=== PATIENT | female | born 1995 | race Caucasian/White ===

== ENCOUNTER 2018-07-17 10:48 | Day surgery (SDC) | payer OTHER ==
[~2018-07-17 10:48] MED LIST: NACL 0.9% 1000 ML 1,000 ML IV SCH
[2018-07-17] MEDS ORDERED: WATER FOR IRRIG STERILE IR ONE (12:02)
--- NOTE | 2018-07-17 12:17 | Anesthesia Day of Surgery ---
Anesthesia Day of Surgery - Day of Surgery Patient Examined: Yes Patient H&P Reviewed: Yes Patient is NPO: Yes Beta Blockers: No
--- NOTE | 2018-07-17 12:18 | Anesthesia Consultation ---
Anesthesia Consult and Med Hx - Airway Anesthetic Teeth Evaluation: Good ROM Head & Neck: Adequate Mental/Hyoid Distance: Adequate Mallampati Class: Class III Intubation Access Assessment: Good - Pulmonary Exam CTA: Yes - Cardiac Exam Cardiac Exam: No Murmur - Pre-Operative Health Status ASA Pre-Surgery Classification: ASA2 Proposed Anesthetic Plan: MAC - Pulmonary Hx Asthma: No COPD: No Hx Pneumonia: No - Cardiovascular System Hx Hypertension: No - Central Nervous System Hx Seizures: No Hx Psychiatric Problems: No - Endocrine Hx Renal Disease: No Hx End Stage Renal Disease: No Hx Hypothyroidism: No Hx Hyperthyroidism: No - Hematic Hx Anemia: No Hx Sickle Cell Disease: No - Other Systems Hx Alcohol Use: No Hx Obesity: Yes
[2018-07-17] MEDS ORDERED: DIPRIVAN 10 MG/ML IV ONE (12:45)
[2018-07-17] MEDS ORDERED: VERSED ONE (12:45)
--- NOTE | 2018-07-17 13:06 | Procedure Note ---
Date of procedure: 07/17/18 Pre-op diagnosis: Epigastric and Right Upper Quadrant Pain Post-op diagnosis: other (No Peptic Ulcer Disease noted/ Mild Distal Esophagitis/Gastritis and Portal Gastropathy/Duodenitis and R/O Celiac Diasease) Procedure: EGD with Biopsy Anesthesia: [facility] [place] Surgeon: PANCHITO FONTANEZ Estimated blood loss: minimal Pathology: list Specimen disposition: to lab Condition: stable Disposition: same day (Treat with PPI. Check LFT and PT/INR. Avoid aspirin and NSAID for 5 days and follow up in 1 to 2 weeks ([phone]).)
--- NOTE | 2018-07-17 13:10 | History and Physical Report ---
HISTORY OF PRESENT ILLNESS: This is a 22-year-old slightly obese female who has been having epigastric and right upper quadrant pain and is to be evaluated for an EGD to make sure there is not any significant upper GI pathology accounting for her upper abdominal discomfort. She had an ultrasound done, which showed presence of incidental gallstones and may require a HIDA scan to be done if the EGD is unremarkable. ALLERGIES: No known allergies. SOCIAL HISTORY: Denies history of smoking or alcohol use. No cardiac issues. No flu shots. FAMILY HISTORY: She does have a family history of diabetes. She does not have any diabetes and is not on any medication. PHYSICAL EXAMINATION: VITAL SIGNS: She is afebrile. Blood pressure 131/83, pulse 82, height is 5 feet, weight is 142 pounds. HEENT: Shows no JVD. LUNGS: Clear to auscultation. CARDIOVASCULAR: Normal. ABDOMEN: Soft with some epigastric and right upper quadrant pain. EXTREMITIES: No pedal edema. NEUROLOGIC: The patient is otherwise alert and oriented. IMPRESSION: Epigastric and right upper quadrant pain, peptic ulcer disease, incidental gallstones, obesity. PLAN: To do an EGD at [facility] on 07/17/2018. Possible HIDA scan to be done as an outpatient if the EGD is unremarkable. JOB# [id number] JOBY/MARIBEL
--- NOTE | 2018-07-17 13:20 | Operative Report ---
PROCEDURE: Esophagogastroduodenoscopy with biopsy. INDICATIONS: A 22-year-old female, who has been having epigastric and right upper quadrant pain. She had an ultrasound done, which showed presence of incidental gallstones. EGD was done to make sure there was not any significant upper GI pathology present. DESCRIPTION OF PROCEDURE: Procedure was done after getting informed consent with MAC anesthesia. Instrument was passed through the hypopharynx into the esophagus, which showed mild distal esophagitis. Stomach showed presence of portal gastropathy. The patient may have underlying MILLAN nonalcoholic steatohepatitis and some antral gastritis. Pylorus is patent. Duodenum showed presence of duodenitis. Second portion appeared normal. Biopsy was done from the second part to rule out for possible celiac disease. Additional biopsy was done from the gastric antrum, angularis and gastric body to rule out for atrophic gastritis and H. pylori gastritis. There was minimal bleeding from the biopsy sites. No complications associated with the procedure. No peptic ulcer disease was noted. ASSESSMENT: Epigastric and right upper quadrant pain, mild distal esophagitis, portal gastropathy, gastritis, duodenitis, rule out celiac disease. The patient may have associated MILLAN. PLAN: There is minimal bleeding from the biopsy sites. No complications associated with the procedure. The patient may have a HIDA scan done as an outpatient to assess for gallbladder function. Await for the biopsy results. LFT will be done to see and a PT/INR to see if the patient has associated MILLAN or not. The patient will be asked to follow up in the office in 1-2 weeks. RNBhumika was in the room throughout the entirety of the procedure. JOB# [id number] JOBY/MARIBEL
[2018-07-17 13:48] VITALS: BP 127/78
[2018-07-17 14:23] LABS: INR 1.21 (0.87-1.13)
[2018-07-17 14:33] LABS: Alanine Aminotransferase 25 units/L (7-56); Albumin 3.8 g/dL (3.9-5)
[2018-07-17 14:39] LABS: Bilirubin,Direct < 0.2 mg/dL (0-0.2)
== END 2018-07-17 10:49 | disposition home or self-care (01) ==
LOC: GIO 10:48
DX: K29.50 Unspecified chronic gastritis without bleeding (principal); K20.9 Esophagitis, unspecified; K31.9 Disease of stomach and duodenum, unspecified; K29.80 Duodenitis without bleeding; E66.9 Obesity, unspecified; Z68.42 Body mass index [BMI] 45.0-49.9, adult; Z79.899 Other long term (current) drug therapy
CPT/HCPCS: 36415; 43239; 80076; 81025; 85610; 88305; 88342; J2250; J2704; J7030